=== PATIENT | female | born 1955 | race African-American/Black ===

== ENCOUNTER 2017-04-11 13:02 | Outpatient (CLI) | payer OTHER ==
--- NOTE | 2017-04-11 16:13 | Mammography Report ---
BILATERAL DIGITAL SCREENING MAMMOGRAM with CAD: 04/11/17 13:02:00 CLINICAL: Routine screening. COMPARISON:None available. FINDINGS: The breasts are heterogeneously dense, which may obscure small masses. No mass, architectural distortion or suspicious calcifications. IMPRESSION: No mammographic evidence of malignancy. BI-RADS CATEGORY: 1 - - Negative RECOMMENDATION: Routine mammographic screening in one year. COMMENT: Patient follow-up letters are generated by our [employer] application.
== END 2017-04-11 13:03 | disposition home or self-care (01) ==
LOC: SPVWC 13:02
PROVIDERS: ATTEND Family Medicine
DX: Z12.31 Encounter for screening mammogram for malignant neoplasm of breast (principal)
CPT/HCPCS: 77067; G0202

== ENCOUNTER 2018-08-15 10:53 | Outpatient (CLI) | payer OTHER ==
--- NOTE | 2018-08-15 11:31 | XRay Report ---
AP AND LATERAL CERVICAL SPINE: History: Cervicalgia. The vertebral bodies are well mineralized and normal in alignment. No evidence for fracture, subluxation or bone lesion. Moderate degenerative disc disease is identified at C5-6 and C6-7. A bridging anterior osteophyte is noted at C6-7. The posterior elements and facet joints are within normal limits. The prevertebral soft tissues are unremarkable. IMPRESSION: Moderate degenerative disc disease at C5-6 and C6-7.
== END 2018-08-15 10:54 | disposition home or self-care (01) ==
LOC: XRAY 10:53
PROVIDERS: ATTEND Family Medicine
DX: M50.322 Other cervical disc degeneration at C5-C6 level (principal)
CPT/HCPCS: 72040